=== PATIENT | female | born 1975 | race African-American/Black ===

== ENCOUNTER 2019-02-16 16:44 | Emergency (ER) | payer MEDICAID ==
[~2019-02-16] VITALS: Ht 170.2 cm; Wt 74.0 kg
[2019-02-16] MEDS ORDERED: DIPH25CA83 PO (17:12)
[2019-02-16 19:20] VITALS: BP 130/64
== END 2019-02-16 19:25 | disposition home or self-care (01) ==
LOC: EDBD 16:44 → ER 18:09
DX: S60.562A Insect bite (nonvenomous) of left hand, initial encounter (principal); L03.114 Cellulitis of left upper limb; W57.XXXA Bitten or stung by nonvenomous insect and other nonvenomous arthropods, initial encounter; Y93.89 Activity, other specified; Y92.89 Other specified places as the place of occurrence of the external cause; Y99.8 Other external cause status
CPT/HCPCS: 81025; 99283